=== PATIENT | female | born 1995 | race Caucasian/White ===

== ENCOUNTER 2017-03-16 12:01 | Emergency (ER) | payer OTHER ==
[2017-03-16] MEDS ORDERED: DEXAMETHASONE 10 MG/ML VIAL PO STA (12:27)
[2017-03-16] MEDS ORDERED: KETOROLAC 60 MG/2 ML VIAL IM STA (12:27)
--- NOTE | 2017-03-16 12:28 | ED Physician Documentation ---
PD HPI HEADACHE - Stated complaint Stated Complaint: MIGRAINES - Chief complaint Chief Complaint: Heent - History obtained from History obtained from: Patient, Family - History of Present Illness Timing - onset: Yesterday Timing - onset during: Rest Timing - duration: Days (1) Timing - details: Gradual onset, Still present Worst headache ever?: No: Worst headache ever? Location: Front Quality: Throbbing Associated symptoms: Nausea. No: Fever, Stiff neck, Vomiting, Weakness, Numbness, Syncope, Seizure, Eye pain, Vision changes Improved by: Rest, Dark room, Quiet, Meds Worsened by: Light, Noise Contributing factors: No: Anticoagulated Similar symptoms before: Diagnosis (migraine) Recently seen: Clinic - Additional information Additional information: 21-year-old female is been having migraines for the past year. She has recently experienced an increase in the number of headaches she is having and in the length that they are lasting. She has been evaluated for TMJ and she will be evaluated by the eye doctor for problems with her eyes. She has not required complicated medications for arrest of the headaches. She has been getting relief with use of ibuprofen. She has not had any vomiting but is nauseous today. Review of Systems Constitutional: denies: Fever, Chills, Myalgias Eyes: reports: Photophobia. denies: Decreased vision Ears: denies: Ear pain Nose: denies: Congestion Throat: denies: Sore throat Cardiac: denies: Chest pain / pressure Respiratory: denies: Dyspnea, Cough GI: reports: Nausea. denies: Abdominal Pain, Vomiting : denies: Dysuria, Frequency Neurologic: reports: Headache. denies: Generalized weakness, Focal weakness, Numbness, Head injury, LOC PD PAST MEDICAL HISTORY - Past Medical History Past Medical History: Yes Neuro: Headache/migraine Other Past Medical History: TMJ - Past Surgical History Past Surgical History: No - Present Medications Home Medications: Ambulatory Orders Medication Instructions Recorded Confirmed No Known Home Medications [No 03/16/17 03/16/17 Known Home Medications] - Allergies Allergies/Adverse Reactions: Allergies Allergy/AdvReac Type Severity Reaction Status Date / Time No Known Drug Allergies Allergy Verified 03/16/17 12:06 - Social History Does the pt smoke?: No Smoking Status: Never smoker Does the pt drink ETOH?: Yes Does the pt have substance abuse?: No - Immunizations Immunizations are current?: Yes PD ED PE NORMAL - Vitals Vital signs reviewed: Yes (hypertensive ) - General General: No acute distress, Well developed/nourished - HEENT HEENT: Atraumatic, PERRL, EOMI, Moist mucous membranes, Pharynx benign, Dentition benign, Other (minimal inflamation to the left TM) - Neck Neck: Supple, no meningeal sign, No bony TTP - Cardiac Cardiac: RRR, No murmur - Respiratory Respiratory: No respiratory distress, Clear bilaterally - Abdomen Abdomen: Soft, Non tender - Back Back: No CVA TTP, No spinal TTP - Derm Derm: Normal color, Warm and dry, No rash - Extremities Extremities: No deformity, No edema - Neuro Neuro: Alert and oriented X 3, runner on 2-12 intact, No motor deficit, No sensory deficit, Normal speech - Psych Psych: Normal mood, Normal affect Results - Vitals Vitals: Vital Signs - 24 hr 03/16/17 03/16/17 12:03 13:36 Temperature 36.8 C Heart Rate 84 82 Respiratory 18 16 Rate Blood Pressure 130/91 H 126/89 H O2 Saturation 99 100 Oxygen O2 Source Room air - Rads (name of study) CT head without Radiology: Prelim report reviewed (Impression: Negative noninhanced head CT.), EMP read indepedently, See rad report PD MEDICAL DECISION MAKING - ED course Complexity details: reviewed results, re-evaluated patient, considered differential, d/w patient, d/w family ED course: 21-year-old female with a history of migraine headaches that are becoming more frequent has a headache that was not relieved by ibuprofen today. Here in the emergency department she is administered Toradol 60 mg IM and dexamethasone 10 mg orally. She has resolution of her headache. A CT scan was done of her head to rule out structural abnormality and this was a normal study. Departure - Departure Disposition: 01 Home, Self Care Clinical Impression: Migraine Qualifiers: Migraine type: without aura Status migrainosus presence: without status migrainosus Intractability: not intractable Qualified Code(s): G43.009 - Migraine without aura, not intractable, without status migrainosus Condition: Stable Instructions: ED Headache Migraine Follow-Up: [facility] [Provider Group] Discharge Date/Time: 03/16/17 13:36
[2017-03-16] MEDS ORDERED: KETOROLAC 60 MG/2 ML VIAL ONE (12:40)
[2017-03-16] MEDS ORDERED: DEXAMETHASONE 10 MG/ML VIAL ONE (12:40)
[2017-03-16] MEDS ORDERED: CHERRY SYRUP 10 ML UDC PO ONE (12:41)
--- NOTE | 2017-03-16 13:34 | CT Preliminary Report ---
Exam: CT HEAD W/O IMPRESSION: Negative nonenhanced head CT. [facility] SITE ID: [id number]
[2017-03-16 13:36] VITALS: BP 126/89
--- NOTE | 2017-03-16 13:37 | CT Report ---
EXAM: CT HEAD EXAM DATE: 03/16/2017 01:00 PM. CLINICAL HISTORY: Persistent headache. COMPARISON: None. TECHNIQUE: Multiaxial CT images were obtained from the foramen magnum to the vertex. IV contrast: Non e. Reformats: Coronal. In accordance with CT protocol optimization, one or more of the following dose reduction techniques w ere utilized for this exam: automated exposure control, adjustment of mA and/or KV based on patient s ize, or use of iterative reconstructive technique. FINDINGS: Parenchyma: No intraparenchymal hemorrhage. No evidence of mass, midline shift, or CT findings of inf arction. Means-white differentiation is distinct. Extraaxial Spaces: Normal for age. No subdural or epidural collections identified. Ventricles: Normal in size and position. Sinuses and orbits: Imaged paranasal sinuses, orbits, and mastoids show no significant abnormality. Bones: No evidence of fracture or calvarial defect. Other: None. IMPRESSION: Negative nonenhanced head CT. [facility] Referring Provider Line: [phone] SITE ID: [id number]
== END 2017-03-16 13:36 | disposition home or self-care (01) ==
LOC: ED 12:01
DX: G43.909 Migraine, unspecified, not intractable, without status migrainosus (principal); H53.149 Visual discomfort, unspecified; R11.0 Nausea
CPT/HCPCS: 70450; 96372; 99283; 99284; A9270

== ENCOUNTER 2017-09-24 20:34 | Emergency (ER) | payer OTHER ==
[2017-09-24 20:45] VITALS: BP 125/70
--- NOTE | 2017-09-24 21:01 | ED Physician Documentation ---
History of Present Illness - Stated complaint Stated Complaint: BACK PAIN - Chief complaint Chief Complaint: General - History obtained from History obtained from: Patient - History of Present Illness Timing: Other (For the last 4 weeks she has had thoracic right-sided back pain which is worse with twisting and lifting things with the right arm. There is no associated fevers, numbness, chills, saddle anesthesia, weakness, numbness, tingling. It is a sharp pain. There was no specific injury but started after laying sod.) Review of Systems Constitutional: denies: Fever, Chills, Myalgias Cardiac: denies: Chest pain / pressure, Palpitations Respiratory: denies: Dyspnea, Cough PD PAST MEDICAL HISTORY - Past Medical History Neuro: Headache/migraine - Past Surgical History Past Surgical History: No - Present Medications Home Medications: Ambulatory Orders Medication Instructions Recorded Confirmed Cyclobenzaprine [Flexeril] 10 mg PO TID PRN #20 tablet 09/24/17 - Allergies Allergies/Adverse Reactions: Allergies Allergy/AdvReac Type Severity Reaction Status Date / Time No Known Drug Allergies Allergy Verified 09/24/17 20:45 - Social History Does the pt smoke?: No Smoking Status: Never smoker Does the pt drink ETOH?: Yes Does the pt have substance abuse?: No - Immunizations Immunizations are current?: Yes PD ED PE NORMAL - Vitals Vital signs reviewed: Yes - General General: Alert and oriented X 3, No acute distress - Neck Neck: Supple, no meningeal sign, No bony TTP - Cardiac Cardiac: RRR, No murmur - Respiratory Respiratory: No respiratory distress, Clear bilaterally - Abdomen Abdomen: Non tender - Back Back: No spinal TTP, Other (Tender Right rhomboid but no midline TTP.) - Extremities Extremities: Other (The patient has equal and normal Achilles and patellar reflexes bilaterally. Normal sensation in all areas of the legs. Patient denies saddle anesthesia. Normal strength in flexion-extension at the ankles, knees, and flexion of the hips.) - Neuro Neuro: Alert and oriented X 3, Normal speech Results - Vitals Vitals: Vital Signs - 24 hr 09/24/17 20:42 Temperature 36.8 C Heart Rate 78 Respiratory 18 Rate Blood Pressure 125/70 O2 Saturation 98 Oxygen O2 Source Room air Departure - Departure Disposition: 01 Home, Self Care Clinical Impression: Spasm of thoracic back muscle Condition: Good Record reviewed to determine appropriate education?: Yes Instructions: ED Spasm Back No Trauma Prescriptions: Cyclobenzaprine [Flexeril] 10 mg PO TID PRN #20 tablet PRN Reason: Pain Comments: [place] you continue to continue taking ibuprofen as needed for pain along with the muscle relaxer, do not drink or drive with muscle relaxer. Return if worsening or new symptoms develop. Forms: Activity restrictions
[2017-09-24] MEDS: CYCLOBENZAPRINE 10 MG Prepack 2 PO PRN (21:05)
== END 2017-09-24 21:06 | disposition home or self-care (01) ==
LOC: ED 20:34
DX: M62.830 Muscle spasm of back (principal)
CPT/HCPCS: 99283

== ENCOUNTER 2019-06-20 00:10 | Emergency (ER) | payer OTHER ==
--- NOTE | 2019-06-20 01:11 | ED Physician Documentation ---
PD HPI UPPER EXT INJURY - Stated complaint Stated Complaint: L ARM PAIN - Chief complaint Chief Complaint: Trauma Ext - History obtained from History obtained from: Patient - History of Present Illness Location: Left, Arm, Elbow Type of injury: Fall (Slipped and fell 2 days ago, and struck the back part of her left low upper arm with pain and swelling in early bruising in the area. She fell again this evening and re-struck the area with it hurting more now.) Where injury occurred: Home Timing - onset: How many days ago (2 days ago and again couple hours ago) Timing - details: Abrupt onset, Still present Worsened by: Moving, Palpating Review of Systems Constitutional: denies: Fever, Chills Skin: denies: Abrasion (s), Laceration (s) Musculoskeletal: denies: Neck pain, Back pain Neurologic: denies: Focal weakness, Numbness, Altered mental status, Head injury, LOC PD PAST MEDICAL HISTORY - Past Medical History Past Medical History: No - Past Surgical History Past Surgical History: No - Present Medications Home Medications: Ambulatory Orders Medication Instructions Recorded Confirmed No Known Home Medications 06/20/19 06/20/19 - Allergies Allergies/Adverse Reactions: Allergies Allergy/AdvReac Type Severity Reaction Status Date / Time No Known Drug Allergies Allergy Verified 09/24/17 20:45 - Social History Does the pt smoke?: No Smoking Status: Never smoker Does the pt drink ETOH?: Yes Does the pt have substance abuse?: No - Immunizations Immunizations are current?: Yes - POLST Patient has POLST: No PD ED PE NORMAL - Vitals Vital signs reviewed: Yes - General General: Alert and oriented X 3, No acute distress, Well developed/nourished - HEENT HEENT: Atraumatic - Neck Neck: Supple, no meningeal sign, No bony TTP - Cardiac Cardiac: RRR, No murmur - Respiratory Respiratory: Clear bilaterally, Other (no chestwall tenderness) - Back Back: No spinal TTP - Derm Derm: Normal color, Warm and dry - Extremities Extremities: Other (The left posterior aspect of the lower upper arm shows local tenderness and swelling with some mild redness and warmth and a faint purplish bruising color. She is able to extend nearly full extension though it hurts at the distal humerus and triceps area. She is not tender at the radial head. She is able to flex and extend supinate and pronate against resistance.) - Neuro Neuro: No motor deficit, No sensory deficit Results - Vitals Vitals: Vital Signs - 24 hr 06/20/19 06/20/19 00:15 02:45 Temperature 37.0 C Heart Rate 81 86 Respiratory 17 16 Rate Blood Pressure 136/97 H 122/76 O2 Saturation 96 97 Oxygen O2 Source Room air - Rads (name of study) left humerus xray Radiology: Prelim report reviewed (no fractures), EMP read contemporaneously, See rad report PD MEDICAL DECISION MAKING - ED course Complexity details: reviewed results, considered differential, d/w patient Departure - Departure Disposition: Home, Self Care Clinical Impression: Fall from slip, trip, or stumble Qualifiers: Encounter type: initial encounter Qualified Code(s): W01.0XXA - Fall on same level from slipping, tripping and stumbling without subsequent striking against object, initial encounter Contusion, upper arm Qualifiers: Encounter type: initial encounter Laterality: left Qualified Code(s): S40.022A - Contusion of left upper arm, initial encounter Condition: Stable Record reviewed to determine appropriate education?: Yes Instructions: ED Contusion Upper Ext Follow-Up: Sandra Leigh MD [Primary Care Provider] - Comments: Your x-ray appears normal without any fractures or breaks. The exam of the arm does not suggest any significant muscle injury or damage. Seems to be bruised and swollen with inflammation. You can use an Adam wrap to help with the swelling. Sling for protected range of motion of the arm to help with discomfort. Continue some anti-inflammatories such as ibuprofen 600 mg 3 times a day. To that add Tylenol if needed. Limited use of the left arm for 3 days or so to allow the swelling to go down. Follow-up with your primary care if not improved well over the next several day timeframe. Forms: Activity restrictions Discharge Date/Time: 06/20/19 02:45
[2019-06-20] MEDS ORDERED: ACETAMINOPHEN 325 MG TABLET PO STA (01:33)
--- NOTE | 2019-06-20 02:37 | XRAY Report ---
Reason: fall with left lower humerus swelling/pain Procedure Date: 06/20/2019 Accession Number: [id number] / [id number] Procedure: XR - Humerus LT CPT Code: Final Report FULL RESULT: EXAM: LEFT HUMERUS RADIOGRAPHY EXAM DATE: 06/20/2019 02:19 AM. CLINICAL HISTORY: Fall with left lower humerus swelling/pain. COMPARISON: None. TECHNIQUE: 2 views. FINDINGS: Bones: Normal. No fractures or bone lesions. Joints: Normal. No effusions or subluxations in the visualized shoulder or elbow joints. Soft Tissues: Soft tissue swelling. No radiopaque foreign body. IMPRESSION: Soft tissue swelling, but no evidence of acute fracture. [facility]
[2019-06-20 03:05] VITALS: BP 122/76
== END 2019-06-20 02:45 | disposition home or self-care (01) ==
LOC: ED 00:10
DX: S40.022A Contusion of left upper arm, initial encounter (principal); W01.0XXA Fall on same level from slipping, tripping and stumbling without subsequent striking against object, initial encounter
CPT/HCPCS: 73060; 99283; 99284; A9270

== ENCOUNTER 2021-02-26 12:30 | Emergency (ER) | payer OTHER ==
[2021-02-26 12:37] VITALS: BP 130/86
--- NOTE | 2021-02-26 12:59 | XRAY Report ---
PROCEDURE: Chest 1 View X-Ray INDICATIONS: Chest pain TECHNIQUE: One view of the chest was acquired. COMPARISON: None FINDINGS: Surgical changes and devices: None. Lungs and pleura: No pleural effusions or pneumothorax. Lungs are clear. Mediastinum: Mediastinal contours appear normal. Heart size is normal. Bones and chest wall: No suspicious bony lesions. Overlying soft tissues appear unremarkable. IMPRESSION: No acute cardiopulmonary abnormality Reviewed by: Ted Naylor on 02/26/2021 12:58 PM PDT Approved by: Ted Naylor on 02/26/2021 12:58 PM PDT Station ID: [id number]
[2021-02-26 13:07] LABS: BASOPHILS # (AUTO) 0.1 10^3/uL (0.0-0.1); BASOPHILS % (AUTO) 0.7 %; EOSINOPHILS # (AUTO) 0.1 10^3/uL (0.0-0.7); EOSINOPHILS % (AUTO) 1.6 %; HCT - HEMATOCRIT 40.3 % (37.0-47.0); HGB - HEMOGLOBIN 13.8 g/dL (12.0-16.0); LYMPHOCYTES # (AUTO) 1.6 10^3/uL (1.5-3.5); LYMPHOCYTES % (AUTO) 22.8 %; MEAN CORPUSCULAR HEMOGLOBIN 31.9 pg (27.0-31.0); MEAN CORPUSCULAR HGB CONC 34.2 g/dL (32.0-36.0); MEAN CORPUSCULAR VOLUME 93.3 fL (81.0-99.0); MEAN PLATELET VOLUME 9.7 fL (7.9-10.8); MONOCYTES # (AUTO) 0.7 10^3/uL (0.0-1.0); NEUTROPHILS # (AUTO) 4.5 10^3/uL (1.5-6.6); NEUTROPHILS % (AUTO) 64.8 %; PLT - PLATELET COUNT 278 10^3/uL (130-450); RED BLOOD COUNT 4.32 10^6/uL (4.20-5.40); RED CELL DISTRIBUTION WIDTH 11.9 % (12.0-15.0); WHITE BLOOD COUNT 6.9 x10^3/uL (4.8-10.8)
[2021-02-26 13:19] LABS: ALBUMIN 4.7 g/dL (3.2-5.5); ALBUMIN/GLOBULIN RATIO 1.7 (1.0-2.2); BILIRUBIN,TOTAL 1.5 mg/dL (0.2-1.0); CALCIUM 9.1 mg/dL (8.5-10.3); CREATININE 0.6 mg/dL (0.4-1.0); POTASSIUM 4.1 mmol/L (3.5-5.0); TOTAL PROTEIN 7.5 g/dL (6.7-8.2)
--- NOTE | 2021-02-26 13:55 | ED Physician Documentation ---
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 She woke this morning at 5 AM with chest pain just to the left of center in the high chest, nonradiating. It lasted 2 hours, but then she noticed some numbness of the right leg which is also now resolved and mild headache and central blurry vision in both eyes. The blurry vision has also resolved. All that is left is a mild headache. There is no associated neck stiffness or fevers. No family history of early onset coronary disease. Review of Systems Constitutional: denies: Fever, Chills, Myalgias Ears: denies: Ear pain Nose: denies: Rhinorrhea / runny nose Throat: denies: Sore throat PD PAST MEDICAL HISTORY - Past Surgical History Past Surgical History: No - Present Medications Home Medications: Ambulatory Orders Medication Instructions Recorded Confirmed No Known Home Medications 06/20/19 02/26/21 - Allergies Allergies/Adverse Reactions: Allergies Allergy/AdvReac Type Severity Reaction Status Date / Time No Known Drug Allergies Allergy Verified 02/26/21 12:37 - Social History Does the pt smoke?: No Smoking Status: Never smoker Does the pt drink ETOH?: Yes Does the pt have substance abuse?: No - Immunizations Immunizations are current?: Yes - POLST Patient has POLST: No PD ED PE NORMAL - Vitals Vital signs reviewed: Yes - General General: Alert and oriented X 3, No acute distress - HEENT HEENT: PERRL, EOMI - Neck Neck: Supple, no meningeal sign, No bony TTP - Cardiac Cardiac: RRR, No murmur - Respiratory Respiratory: No respiratory distress, Clear bilaterally - Abdomen Abdomen: Non tender - Back Back: No CVA TTP, No spinal TTP - Derm Derm: Normal color, Warm and dry - Extremities Extremities: No edema, No calf tenderness / cord - Neuro Neuro: Alert and oriented X 3, Normal speech Results - Vitals Vitals: Vital Signs - 24 hr 02/26/21 12:34 Temperature 36.4 C L Heart Rate 71 Respiratory 16 Rate Blood Pressure 130/86 H O2 Saturation 99 Oxygen O2 Source Room air - EKG (time done) 1241 Rate: Rate (enter#) (69) Rhythm: NSR [place]: Normal Intervals: Normal MI QRS: Normal Ischemia: Normal ST segments Computer interpretation: Agree with computer - Labs Labs: Laboratory Tests 02/26/21 02/26/21 02/26/21 13:01 13:01 13:01 WBC 6.9 RBC 4.32 Hgb 13.8 Hct 40.3 MCV 93.3 MCH 31.9 H MCHC 34.2 RDW 11.9 L Plt Count 278 MPV 9.7 Neut # (Auto) 4.5 Lymph # (Auto) 1.6 [place] # (Auto) 0.7 Eos # (Auto) 0.1 Baso # (Auto) 0.1 Absolute Nucleated RBC 0.00 Nucleated RBC % 0.0 Sodium 140 Potassium 4.1 Chloride 104 Carbon Dioxide 26 Anion Gap 10.0 BUN 10 Creatinine 0.6 Estimated GFR (MDRD) 122 Glucose 91 Calcium 9.1 Total Bilirubin 1.5 H AST 18 ALT 16 Alkaline Phosphatase 45 Troponin I High Sens < 2.3 L Total Protein 7.5 Albumin 4.7 Globulin 2.8 Albumin/Globulin Ratio 1.7 Lipase 43 - Rads (name of study) 1v cxr Radiology: EMP read contemporaneously (NAD) PD MEDICAL DECISION MAKING - ED course ED course: Heart score 1 for tobacco, PERC negative Departure - Departure Disposition: 01 Home, Self Care Clinical Impression: Chest pain Condition: Good Record reviewed to determine appropriate education?: Yes Instructions: ED Chest Pain NonCardiac Comments: Unclear what caused her symptoms today, but chest x-ray, EKG, labs are all normal. Return if you worsen or if new symptoms develop. [place]
== END 2021-02-26 14:05 | disposition home or self-care (01) ==
LOC: ED 12:30
DX: R07.9 Chest pain, unspecified (principal); R51.9 Headache, unspecified; Z72.0 Tobacco use
CPT/HCPCS: 36415; 80053; 83690; 84484; 85025; 93005; 99284